=== PATIENT | male | born 1980 | race Caucasian/White ===

== ENCOUNTER → 2018-08-18 13:29 | Outpatient (CLI) | payer BC, SELFPAY ==
--- NOTE | 2018-08-18 13:39 | US_ITS ---
US chest ORDERING PHYSICIAN : ERICA Wilson PATIENT AGE: 38 years GENDER: Male HISTORY:ITS.REASON: MASS ON BACK COMPARISON: TECHNIQUE: Routine FINDINGS: In the deep subcutaneous soft tissues between the skin and the muscle along the posterior right lower back, there is a hypoechoic focus measuring 1.0 x 0.6 cm with some increase echoes centrally and there is distal acoustic enhancement. There is no central enhancement although there is some enhancement at the periphery of the abnormality. IMPRESSION: The deep subcutaneous lesion as described is not a simple cyst. This could be a focal small round hematoma or a complex sebaceous cyst. Suggest continued clinical follow-up and if any change such as increased size repeat exam and/or aspiration may be necessary.
== END ==
PROVIDERS: PCP Family Medicine; Visit Provider Physician Assistant
DX: R22.2 Localized swelling, mass and lump, trunk (principal)
CPT/HCPCS: 76604

== ENCOUNTER → 2019-09-30 12:05 | Outpatient (CLI) | payer BC, SELFPAY | PROVIDERS: PCP Family Medicine; Visit Provider Physician Assistant | DX: Z03.818 Encounter for observation for suspected exposure to other biological agents ruled out (principal) | CPT/HCPCS: U0003 ==

== ENCOUNTER 2020-09-14 09:36 | Emergency (ER) | payer BC, SELFPAY ==
[2020-09-14 10:14] VITALS: BP 136/91; PULSE 92; RESP 22; TEMP 36.8; O2SAT 96; BMI 32.5
--- NOTE | 2020-09-14 10:18 | XR_ITS ---
PROCEDURE: XR CHEST 2V CLINICAL HISTORY: soa And cough COMPARISON: CR CXR CHEST(2 VIEWS-NOT PORTABLE) from 03/15/2016 FINDINGS: The cardiomediastinal silhouette and pulmonary vascularity are within normal limits. Lungs are fairly well-expanded and there is an ill-defined opacity partially silhouetting the left heart border consistent with a pneumonic infiltrate in the lingula. Remainder of the lung el are clear. No pleural fluid. The bony thorax is normal. IMPRESSION: Lingular pneumonic infiltrate as noted Dictated by: Dr. Rory Beach MD 09/14/2020 10:46 Dr. Rory Beach MD in [place] 09/14/2020 10:46
[2020-09-14 10:23] LABS: Adenovirus,PCR Not Detected (NotDetected); Bordetella Pertussis Not Detected (NotDetected); Chlamydophila Pneumoniae, PCR Not Detected (NotDetected); Coronavirus 19, PCR Not Detected (NotDetected); Coronavirus 229E Not Detected (NotDetected); Coronavirus NL63 Not Detected (NotDetected); Coronavirus OC43 Not Detected (NotDetected); Coronovirus HKU1,PCR Not Detected (NotDetected); Human Metapneumovirus Not Detected (NotDetected); Influenza A, PCR Not Detected (NotDetected); Influenza AH1, 2009 Not Detected (NotDetected); Influenza AH1, PCR Not Detected (NotDetected); Influenza AH3,PCR Not Detected (NotDetected); Influenza B, PCR Not Detected (NotDetected); Mycoplasma Pneumoniae, PCR Not Detected (NotDetected); Parainfluenza 1, PCR Not Detected (NotDetected); Parainfluenza 2, PCR Not Detected (NotDetected); Parainfluenza 3, PCR Not Detected (NotDetected); Parainfluenza 4, PCR Not Detected (NotDetected); Respiratory Syncytial Virus Not Detected (NotDetected); Rhinovirus/Enterovirus Not Detected (NotDetected)
--- NOTE | 2020-09-14 10:23 | HMH.EDUTC ---
[facility] – [place] Disposition Clinical Impression: Pneumonia Qualifiers: Pneumonia type: due to unspecified organism Laterality: unspecified laterality Lung location: unspecified part of lung Qualified Code(s): J18.9 - Pneumonia, unspecified organism Disposition: Home, Self-Care Condition on Discharge: Good Instructions: Pneumonia-Adult Additional Instructions: Drink plenty of fluids. Take tylenol or ibuprofen for pain or fever. Take the medications as directed. Follow up with your regular doctor. GO TO THE ER FOR ANY WORSENING SYMPTOMS The cough medication (promethazine dm) will make you drowsy, so don't drive or operate heavy machinery after taking it. Prescriptions: Promethazine/Dextromethorphan [Promethazine-Dm Syrup] 5 ml PO Q6HP PRN #240 syrup PRN Reason: Cough Transmission Status: Received by [facility] methylPREDNISolone [Medrol] 4 mg PO DIRECTED 6 Days #21 tab.ds.pk Transmission Status: Received by [facility] Azithromycin [Z-Juwan 250mg Tab*] 250 mg PO UD DOSE PK #6 tab Transmission Status: Received by [facility] Referrals: Stevenson Carter MD [Primary Care Provider] - Forms: Work/School Release Time of Disposition: 10:58 Medical Decision Making - Medical Records Medical records reviewed: No: I reviewed the patient's medical records. - Narayan Inquiry Pt receiving controlled substance: No Vital Signs: 09/14/20 10:14 09/14/20 11:00 Temperature 98.2 F 98.6 F Temperature Source Oral Pulse Rate 92 H Pulse Rate [Left] 92 H Respiratory Rate 22 21 Blood Pressure 136/91 H Blood Pressure [Right Arm] 136/91 H Blood Pressure Mean [Right Arm] 106 02 Sat by Pulse Oximetry 96 - Lab Data Lab results reviewed: Yes: I reviewed the patient's lab results. Lab Results 09/14/20 10:13: Chlamy pneumoniae PCR Not detected, Adenovirus (PCR) Not detected, B. pertussis DNA (PCR) Not detected, Coronavirus OC43 (PCR) Not detected, Coronavirus HKU1 (PCR) Not detected, Coronavirus 229E (PCR) Not detected, SARS-CoV-2 (PCR) Not detected, Coronavirus NL63 (PCR) Not detected, Human Metapneumovir PCR Not detected, Influenza A (H1) PCR Not detected, Influ A (H1N1/09) PCR Not detected, Influenza A (H3) PCR Not detected, Influenza Type A (PCR) Not detected, Influenza Type B (PCR) Not detected, M. pneumoniae (PCR) Not detected, Parainfluenza 1 (PCR) Not detected, Parainfluenza 2 (PCR) Not detected, Parainfluenza 3 (PCR) Not detected, Parainfluenza 4 (PCR) Not detected, RSV (PCR) Not detected, Entero/Rhino (PCR) Not detected - Radiology Data #1 Image(s): Chest Image Reviewed: Yes I reviewed the patient's radiology image, Yes I have reviewed radiologist's interpretation Preliminary Findings: Abnormal PROCEDURE: XR CHEST 2V CLINICAL HISTORY: soa And cough COMPARISON: CR CXR CHEST(2 VIEWS-NOT PORTABLE) from 03/15/2016 FINDINGS: The cardiomediastinal silhouette and pulmonary vascularity are within normal limits. Lungs are fairly well-expanded and there is an ill-defined opacity partially silhouetting the left heart border consistent with a pneumonic infiltrate in the lingula. Remainder of the lung el are clear. No pleural fluid. The bony thorax is normal. IMPRESSION: Lingular pneumonic infiltrate as noted Dictated by: Dr. Rory Beach MD 09/14/2020 10:46 Dr. Rory Beach MD in [place] 09/14/2020 10:46 [facility] [place] HPI - General Stated complaint: chest congestion Time Seen by Provider: 09/14/20 10:23 Mode of Arrival: Ambulatory Source of Information: Patient Limitations: No Limitations Description of Symptoms (Recalled from Triage Doc. by RN): pt states he has had chest congestion for two weeks, pt is wheezing and soa. he also states its painful to breathe. HEENT Symptoms (Recalled from RN notes): No Resp Symptoms (Recalled from RN notes): Yes (soa, chest congestion and painful breathing with wheezing) Skin Symptoms (Recalled from RN notes): No MS Sympto
[2020-09-14 11:00] VITALS: BP 136/91; PULSE 92; RESP 21; TEMP 37
== END 2020-09-14 11:09 | disposition home or self-care (01) ==
PROVIDERS: Emergency Provider Nurse Practitioner Family; PCP Family Medicine
DX: J18.9 Pneumonia, unspecified organism (principal)
CPT/HCPCS: 71046; 87581; 87633; 87798; 99202; G0463

== ENCOUNTER → 2020-09-26 15:57 | Outpatient (CLI) | payer BC, SELFPAY ==
--- NOTE | 2020-09-26 16:02 | XR_ITS ---
PROCEDURE: XR CHEST 2V CLINICAL HISTORY: HX OF RECENT PNEUMONIA COMPARISON: CT ABDPELW/O CT ABD PELVIS W/O CONTRAST from 02/19/2014 CR CXR CHEST(2 VIEWS-NOT PORTABLE) from 03/15/2016 CR XR CHEST 2V from 09/14/2020 FINDINGS: The cardiomediastinal silhouette and pulmonary vascularity are within normal limits. The lungs are clear without infiltrates, suspicious nodules, or pleural effusions. Left-sided pericardial fat pad is noted. No acute bony abnormalities. IMPRESSION: No acute findings. Dictated by: Yang Frazier MD 09/26/2020 16:45 Yang Frazier MD in [place] 09/26/2020 16:45
== END ==
PROVIDERS: PCP Family Medicine; Visit Provider Family Medicine
DX: Z87.01 Personal history of pneumonia (recurrent) (principal)
CPT/HCPCS: 71046

== ENCOUNTER → 2021-01-30 08:31 | Outpatient (CLI) | payer BC, SELFPAY | PROVIDERS: PCP Family Medicine; Visit Provider Nurse Practitioner | DX: Z20.822 Contact with and (suspected) exposure to COVID-19 (principal) | CPT/HCPCS: C9803; U0003; U0005 ==

== ENCOUNTER → 2021-02-08 09:20 | Outpatient (CLI) | payer BC, SELFPAY | PROVIDERS: PCP Family Medicine; Visit Provider Nurse Practitioner | DX: Z20.822 Contact with and (suspected) exposure to COVID-19 (principal) | CPT/HCPCS: C9803; U0003; U0005 ==

== ENCOUNTER → 2021-03-17 08:19 | Outpatient (CLI) | payer BC, SELFPAY ==
--- NOTE | 2021-03-17 08:22 | US_ITS ---
FINAL REPORT CLINICAL HISTORY: RUQ PAIN,STOOL DISCOLORATION FINDINGS: Sonographic images of the right upper quadrant were obtained. The pancreas is partially obscured.The liver has an unremarkable appearance. There is sludge in the gallbladder with borderline wall thickening, measuring 3 mm, nonspecific.There is no evidence of biliary ductal dilatation.The common duct measures 2mm. Limited images of the right kidney are unremarkable. IMPRESSION: Sludge in the gallbladder. Borderline gallbladder wall thickening as a nonspecific finding. Reviewed, Interpreted and Dictated by Rancho Angela III, MD Transcribed by Janet Meyer Authenticated by Rancho Angela III, MD on 03/17/2021 09:22:15 AM [facility]
== END ==
LOC: RAD 08:19
PROVIDERS: PCP Family Medicine; Visit Provider Family Medicine
DX: R10.10 Upper abdominal pain, unspecified (principal); R19.5 Other fecal abnormalities
CPT/HCPCS: 76705

== ENCOUNTER → 2021-04-07 10:08 | Outpatient (CLI) | payer BC, SELFPAY ==
--- NOTE | 2021-04-07 10:11 | NM_ITS ---
FINAL REPORT CLINICAL HISTORY: RUQ PAIN, SLUDGE ON U/S 10:30AM 8.36MCI TC CHOLETEC 11:40AM ENSURE, NO MENTION OF PAIN WITH MEAL SB=10 MINPER ABD PAIN FINDINGS: Sequential anterior projection images of the abdomen were obtained after the intravenous injection of 8.36 mCi technetium 99m Choletec. There is normal uptake of radiotracer by the liver. The bile ducts, gallbladder and bowel are visualized by 10 minutes. After 1 hour, Ensure was ingested for calculation of gallbladder ejection fraction. The gallbladder ejection fraction is 38 %, which is within normal limits. IMPRESSION: No evidence of cystic duct or bile duct obstruction. Normal gallbladder ejection fraction of 38 %. Reviewed, Interpreted and Dictated by Rancho Angela III, MD Transcribed by Ronald Lyons Authenticated by Rancho Angela III, MD on 04/07/2021 03:43:[address] [facility]
== END ==
LOC: RAD 10:08
PROVIDERS: PCP Family Medicine; Visit Provider Family Medicine
DX: R10.10 Upper abdominal pain, unspecified (principal)
CPT/HCPCS: 78227; A9537

== ENCOUNTER 2023-03-14 14:41 | Outpatient (CLI) | payer BC, SELFPAY ==
[2023-03-14 15:05] LABS: Basophils % 0.6 % (0.1-2.0); Eosinophils % 0.9 % (0.1-12.0); Hematocrit 44.3 % (42.0-52.0); Lymphocytes # 1.1 K/mm3 (0.7-4.5); Mean Corpuscular HGB Conc 36.2 g/dL (31.8-35.4); Mean Corpuscular Hemoglobin 33.6 pg (27.0-31.2); Mean Corpuscular Volume 92.8 fl (80-94); Mean Platelet Volume 8.4 fl (7.4-10.4); Monocytes # 0.4 K/mm3 (0.1-1.0); Monocytes % 8.7 % (1.7-9.3); Neutrophils % 65.9 % (37.0-80.0); Platelet Count 252 K/mm3 (142-424); Red Blood Count 4.77 M/mm3 (4.60-6.20); White Blood Count 4.6 K/mm3 (4.8-10.8)
[2023-03-14 15:19] LABS: Chloride 106 mmol/L (98-107); Sodium 138 mmol/L (136-145)
[2023-03-14 15:20] LABS: Potassium 4.3 mmoL/L (3.5-5.1)
[2023-03-14 15:22] LABS: Alanine Aminotransferase 54 U/L (12-78); Albumin Level 4.7 g/dl (3.5-5.0); Albumin/Globulin Ratio 1.8 (1.1-1.8); Alkaline Phosphatase 43 U/L (38-126); Anion Gap 14.3 mEq/L (5-15); Aspartate Amino Transferase 40 U/L (17-59); Bilirubin,Total 0.7 mg/dl (0.2-1.3); Blood Urea Nitrogen 17 mg/dl (9-20); Calcium 8.9 mg/dl (8.4-10.2); Carbon Dioxide 22 mmol/L (22.0-30.0); Estimated Glomerular Filt Rate 82 ml/min (>60); GFR (African American) 99 ML/MIN (>60); Globulin 2.6 g/dL (1.3-3.2); Glucose 74 mg/dl (74-100); Total Protein,Serum 7.3 g/dl (6.3-8.2)
[2023-03-14 15:34] LABS: Free Thyroxine Index 2.2 ug/dL (5.93-13.13); Triiodothryronine (T3) Uptake 32 % (23.5-40.5)
[2023-03-14 15:48] LABS: Thyroid Stimulating Hormone 1.49 uIU/mL (0.465-4.68)
[2023-03-14 16:12] LABS: Vitamin B12 369 pg/mL (239-931)
[2023-03-14 17:07] LABS: Hemoglobin A1C 5.1 % (4.0-6.0)
[2023-03-15 08:39] LABS: Thyroid Peroxidase Antibodies 9 IU/mL (0-34)
[2023-03-21 10:14] LABS: 1,25 Dihydroxy Vitamin D 93 pg/mL (.); 1,25-Dihydroxy, Vitamin D-2 <10 pg/mL (.); 1,25-Dihydroxy, Vitamin D-3 93 pg/mL (.)
[2023-03-23 16:43] LABS: Free Testosterone (Direct) 13.6 pg/mL (6.8-21.5); Testosterone, Total, LC/MS 482.7 ng/dL (264.0-916.0)
== END 2023-03-14 23:59 ==
LOC: LAB.DROPOF 14:42
PROVIDERS: PCP Nurse Practitioner Psychiatric/Mental Health; Visit Provider Nurse Practitioner Psychiatric/Mental Health
DX: Z00.00 Encounter for general adult medical examination without abnormal findings (principal); Z79.899 Other long term (current) drug therapy; R53.83 Other fatigue
CPT/HCPCS: 80053; 82607; 82652; 83036; 84436; 84443; 84479; 85025; 86376

== ENCOUNTER 2024-01-27 11:18 | Emergency (ER) | payer BC, SELFPAY ==
[2024-01-27 11:25] VITALS: BP 116/85; PULSE 86; RESP 21; TEMP 37.2; O2SAT 96; BMI 32.0
--- NOTE | 2024-01-27 11:37 | ED_ITS ---
Discharge Plan Disposition Patient Disposition: Home, Self-Care Condition: Good Prescriptions Prescriptions: New guaifenesin [Mucinex] 1,200 mg tablet extended release 12hr 1,200 mg PO Q12H PRN (Reason: cough/congestion) Qty: 20 0RF No Action dextroamphetamine-amphetamine 10 mg capsule,extended release 24hr 10 mg PO DAILY Patient Comments: TAKE 1 CAPSULE BY MOUTH DAILY vilazodone 20 mg tablet 20 mg PO DAILY Patient Comments: TAKE 1 TABLET BY MOUTH DAILY Referrals Follow up/Referrals: Stevenson Carter MD [Primary Care Provider] - See instructions Activity Restrictions/Add. Instructions Additional Instructions/Restrictions: * Too late to start Tamiflu. Most effective when started within 48 hours of symptoms onset * Lots of rest * Increase Fluids water, Gatorade, powerade, pedialyte,if /toddler/child * Alternate Tylenol and / or ibuprofen as discussed for fever, aches, chills Follow up IMMEDIATELY with your family doctor for new or worsening Symptoms OR no noticeable improvement over the next 48-72 hours, 911 for difficulty or breathing * You or your child area contagious until no fever, aches, chills for 24 hours with medication for symptoms * Help Prevent the spread of influenza: * ?Wash your hands often. Use soap and water. Wash your hands after you use the bathroom, change a child's diapers, or sneeze. Wash your hands before you prepare or eat food. Use gel hand cleanser that has 60% alcohol, when soap and water are not available. Do not touch your eyes, nose, or mouth unless you have washed your hands first. * Cover your mouth when you sneeze or cough. Cough into a tissue or the bend of your arm. If you use a tissue, throw it away immediately and wash your hands. * Clean shared items with a germ-killing hat cleaner. Clean table surfaces, doorknobs, and light switches. Do not share towels, silverware, and dishes with people who are sick. Wash bed sheets, towels, silverware, and dishes with soap and water. * Wear a mask over your mouth and nose if you are sick. The face mask may help protect others from becoming infected with the flu. Wear the mask when in common areas of your home or if you seek care with a healthcare provider. * Stay away from others if you are sick. Stay at home until 24 hours after your fever and symptoms are gone. Clinical Impressions Clinical Impression: Influenza Instructions Patient Instructions: DI for Influenza -- Adult, Influenza Print Language Print Language: Welsh Discharge ED Provider: Clarissa Nicolas [facility] [place] General Stated complaint: SOA, chest congestion, headache, bodyaches Mode of Arrival: Ambulatory Source of Information: Patient Limitations: No Limitations Time Seen by Provider: 01/27/24 11:37 Description of Symptoms (Recalled from Triage Doc. by RN): PATIENT C/O CHEST CONGESTION, COUGH, SOA, AND BODY ACHES X 1 WEEK HEENT Symptoms (Recalled from RN notes): No Resp Symptoms (Recalled from RN notes): Yes Skin Symptoms (Recalled from RN notes): No MS Symptoms (Recalled from RN notes): No Functional Status (Recalled from RN notes): WNL History of Present Illness Provider Complaint: Patient states that he hasnt felt well for about a week having body aches, chills, headache, scratchy throat sinus congestion, drainage and wheezy at times with pain and pressure in his ears States that he has had a low grade fever States today wasnt feeling any better so he came in to get checked Related Data Home Medications ?Medication ?Instructions ?Recorded ?Confirmed dextroamphetamine-amphetamine ER 10 mg PO DAILY 01/27/24 01/27/24 10 mg 24hr capsule,extend release vilazodone 20 mg tablet 20 mg PO DAILY 01/27/24 01/27/24 Previous Rx's ?Medication ?Instructions ?Recorded guaifenesin 1,200 mg tablet, 1,200 mg PO Q12H PRN 01/27/24 extended release 12 hr (Mucinex) cough/congestion #20 tabs Allergies Allergy/AdvReac Type Severity Reaction Status Date / Time No Known Allergies Allergy Verified 01/01/24 14:03 Worker's Comp Is this a Worker's Comp case?: No [facility] Disclaimer: The information contained in this section may have been updated after the patient was seen, as this information can be updated by other users. Medical History Attention deficit disorder (ADD) in adult Generalized anxiety disorder Surgical History History of spinal fusion Family History (Updated 02/28/23 @ 11:30 by Tasia Strong) Other No significant family history Social History Smoking Status: Current every day smoker tobacco type: smokeless tobacco second hand exposure: No alcohol intake: current alcohol intake frequency: a few times a week counseling given: No (will drink when he doesn't have his kids) substance use type: marijuana counseling given: No current occupational status: employed adopted: No caregiver/support person: Yes foster care: No household members: children housing: house lives independently: Yes marital status: number of children: 3 number of grandchildren: 0 education level: high school Hx Recent Travel: No sexually active: No caffeine: Yes tonya/lutheran: Islam special tonya needs: No working smoke detector in home: Yes fire extinguisher in home: No carbon monox detector in home: No firearms in home: Yes firearms unloaded and locked: Yes do you feel safe at home: Yes victim of physical abuse: No victim of emotional abuse: No victim of sexual abuse: No would you like helpful sources: No ROS Obtained: Yes All systems reviewed & no additional complaints except as documented and Yes Systems reviewed as appropriate & no additional complaints except as documented Constitutional Constitutional: Reports system reviewed and no additional complaints, except as documented, Reports as per HPI, Reports body ache, Reports chills, Reports fever(s) and Reports headache(s) ENT Ears, Nose, Mouth, and Throat: Reports system reviewed and no additional complaints, except as documented, Reports as per HPI, Reports headache(s), Reports sinus pain and Reports sinus pressure Cardiovascular Cardiovascular: Reports system reviewed and no additional complaints, except as documented, Reports as per HPI and Denies chest pain Respiratory Respiratory: Reports system reviewed and no additional complaints, except as documented, Reports as per HPI, Reports chest congestion and Reports cough Gastrointestinal Gastrointestingal: Reports system reviewed and no additional complaints, except as documented and as per HPI Genitourinary Male Genitourinary: Reports system reviewed and no additional complaints, except as documented and Reports as per HPI Musculoskeletal Musculoskeletal: Reports system reviewed and no additional complaints, except as documented and Reports as per HPI Neurologic Neurologic: Reports headache(s) Physical Exam General General appearance: alert and in no apparent distress ENT ENT exam: Present mucous membranes moist Expanded ENT Exam Nose exam: Present sinus tenderness Throat exam: Present tonsillar erythema Respiratory Respiratory exam: Present normal lung sounds bilaterally; Absent respiratory distress or wheezes Cardiovascular Cardiovascular exam: Present regular rate, normal rhythm and normal heart sounds Abdominal Exam Abdominal exam: Present soft and normal bowel sounds; Absent distention or tenderness Neurological Exam Neurological exam: Present alert, oriented X3 and normal gait Medical Decision Making Medical Records Screening: Per USPSTF and CDC recommendations, given the prevalence of disease in our region, it is our hospital?s policy to screen for HIV and viral Hepatitis for all patients aged 18 and over and those with ongoing risk factors. Narayan Inquiry Pt receiving controlled substance: No Narayan was queried for this patient: No Vital Signs: 01/27/24 11:25 Temperature 99.0 F Temperature Source Oral Pulse Rate [Left Brachial] 86 Respiratory Rate 21 Blood Pressure [Left Arm] 116/85 Blood Pressure Mean [Left Arm] 95 Blood Pressure Source [Left Arm] Automatic Cuff Blood Pressure Position [Left Arm] Sitting 02 Sat by Pulse Oximetry 96 Oxygen Delivery Method Room Air Lab Data Lab results reviewed: Yes I reviewed the patient's lab results.
[2024-01-27 11:59] LABS: UTC Strep Screen (Rapid) Negative (Negative)
[2024-01-27 12:00] LABS: UTC Influenza A Antigen Positive (Negative); UTC Influenza B Antigen Negative (Negative)
[2024-01-27 12:05] VITALS: BP 116/85; PULSE 86; RESP 21; TEMP 37.2; O2SAT 96
== END 2024-01-27 12:07 | disposition home or self-care (01) ==
PROVIDERS: Emergency Provider Nurse Practitioner; PCP Family Medicine
DX: J11.1 Influenza due to unidentified influenza virus with other respiratory manifestations (principal); R06.02 Shortness of breath; M79.10 Myalgia, unspecified site; R09.81 Nasal congestion; R05.9 Cough, unspecified; R50.9 Fever, unspecified; R06.2 Wheezing; H92.03 Otalgia, bilateral
CPT/HCPCS: 87804; 87880; 99212; G0381